=== PATIENT | male | born 1945 | race Caucasian/White ===

== ENCOUNTER → 2016-07-16 | Outpatient (CLI) | payer MEDICARE, OTHER ==
[2016-07-01 08:38] VITALS: BP 136/67
[~2016-07-16] MED LIST: ALFU10TA PO; CALC0.25 PO; CALC500T50 PO; CHOL10002 PO; ESOM40CA PO; LACT1CAP8 PO; LEVO175T5 AD; MECO5000 PO; METO25TA9 PO; ROPI1TAB PO; UBID100C26 PO
== END | disposition home or self-care (01) ==
LOC: PMGWOUND 08:23
PROVIDERS: ATTEND Preventive Medicine Undersea and Hyperbaric Medicine
DX: E11.621 Type 2 diabetes mellitus with foot ulcer (principal); L97.511 Non-pressure chronic ulcer of other part of right foot limited to breakdown of skin
CPT/HCPCS: 99214

== ENCOUNTER → 2016-07-24 | Outpatient (CLI) | payer MEDICARE, OTHER ==
[2016-07-01 08:38] VITALS: BP 136/67
== END | disposition home or self-care (01) ==
LOC: PMGWOUND 08:27
PROVIDERS: ATTEND Emergency Medicine Undersea and Hyperbaric Medicine
DX: E11.621 Type 2 diabetes mellitus with foot ulcer (principal); L97.512 Non-pressure chronic ulcer of other part of right foot with fat layer exposed; E11.51 Type 2 diabetes mellitus with diabetic peripheral angiopathy without gangrene; M19.90 Unspecified osteoarthritis, unspecified site
CPT/HCPCS: 99214

== ENCOUNTER → 2016-07-28 | Outpatient (CLI) | payer MEDICARE, OTHER ==
[2016-07-01 08:38] VITALS: BP 136/67
== END | disposition home or self-care (01) ==
LOC: PMGWOUND 07:55
PROVIDERS: ATTEND Emergency Medicine Undersea and Hyperbaric Medicine
DX: E11.621 Type 2 diabetes mellitus with foot ulcer (principal); L97.512 Non-pressure chronic ulcer of other part of right foot with fat layer exposed; E11.51 Type 2 diabetes mellitus with diabetic peripheral angiopathy without gangrene; M19.90 Unspecified osteoarthritis, unspecified site
CPT/HCPCS: 97597

== ENCOUNTER → 2016-07-31 | Outpatient (CLI) | payer MEDICARE, OTHER ==
[2016-07-01 08:38] VITALS: BP 136/67
== END | disposition home or self-care (01) ==
LOC: PMGWOUND 08:12
PROVIDERS: ATTEND Preventive Medicine Undersea and Hyperbaric Medicine
DX: E11.621 Type 2 diabetes mellitus with foot ulcer (principal); L97.511 Non-pressure chronic ulcer of other part of right foot limited to breakdown of skin; E11.51 Type 2 diabetes mellitus with diabetic peripheral angiopathy without gangrene; M19.90 Unspecified osteoarthritis, unspecified site; E11.42 Type 2 diabetes mellitus with diabetic polyneuropathy; I10 Essential (primary) hypertension; E11.40 Type 2 diabetes mellitus with diabetic neuropathy, unspecified
CPT/HCPCS: 99213

== ENCOUNTER → 2016-08-04 | Outpatient (CLI) | payer MEDICARE, OTHER ==
[2016-07-01 08:38] VITALS: BP 136/67
== END | disposition home or self-care (01) ==
LOC: PMGWOUND 08:21
PROVIDERS: ATTEND Emergency Medicine Undersea and Hyperbaric Medicine
DX: E11.621 Type 2 diabetes mellitus with foot ulcer (principal); L97.512 Non-pressure chronic ulcer of other part of right foot with fat layer exposed; E11.51 Type 2 diabetes mellitus with diabetic peripheral angiopathy without gangrene; M19.90 Unspecified osteoarthritis, unspecified site
CPT/HCPCS: 11042

== ENCOUNTER → 2016-08-06 | Outpatient (CLI) | payer MEDICARE, OTHER ==
[2016-07-01 08:38] VITALS: BP 136/67
[~2016-08-06] MED LIST changes: +AMOX1TAB61 PO; +HYDR-971 PO
--- NOTE | 2016-08-06 15:01 | RAD ---
Bilateral lower extremity arterial ultrasound with KIMMIE measurements, 08/06/2016: History: Peripheral vascular disease, foot ulcer Duplex evaluation of the major arteries in both lower extremities was performed including grayscale, color-flow and spectral Doppler analysis. There are mild scattered atherosclerotic plaques. On the left, the common femoral, superficial femoral and popliteal arteries demonstrate triphasic Doppler waveforms. No significant focal velocity acceleration is seen to suggest significant focal stenosis. Patent anterior tibial, posterior tibial and peroneal arteries are present in the left lower leg demonstrating triphasic Doppler waveforms. The left dorsalis pedis Doppler waveform is also triphasic. Resting KIMMIE measurements were obtained. The left KIMMIE is 1.1 which is within normal limits. On the right, the common femoral, superficial femoral and popliteal Doppler waveforms are triphasic. No significant focal velocity elevation is seen in those vessels to suggest high-grade stenosis. Patent posterior tibial, peroneal and anterior tibial arteries are present in the right lower leg. They demonstrate monophasic Doppler waveforms, although of good amplitude. The right dorsalis pedis Doppler waveform is monophasic and somewhat dampened. The right resting KIMMIE measurement is 1.1, in the normal range. IMPRESSION: 1. Mild scattered atherosclerotic plaquing without evidence of high-grade femoral-popliteal stenosis. 2. Mild degradation of the distal Doppler waveforms in the right lower leg and ankle. 3. Normal bilateral resting KIMMIE measurements.
== END | disposition home or self-care (01) ==
LOC: US 10:01
PROVIDERS: ATTEND Podiatrist Foot & Ankle Surgery
DX: L97.529 Non-pressure chronic ulcer of other part of left foot with unspecified severity (principal); L97.519 Non-pressure chronic ulcer of other part of right foot with unspecified severity; I73.9 Peripheral vascular disease, unspecified; I70.0 Atherosclerosis of aorta
CPT/HCPCS: 93922; 93925

== ENCOUNTER 2016-08-08 08:44 | Day surgery (SDC) | payer MEDICARE, OTHER ==
[~2016-08-08] VITALS: Ht 193 cm; Wt 104.3 kg
[~2016-08-08 08:44] MED LIST changes: -AMOX1TAB61 PO; +BUPIVACAINE MPF 0.5% 30 ML VIAL. ONE; +BUPIVACAINE-EPI 0.25%-1:200000 MPF 30 ML VIAL. ONE; +CEFAZOLIN 1GM IVPB FOR OMNI 50 ML IV PRN; +DEXAMETHASONE SOD PHOS 4 MG/ML VIAL ONE; +FENTANYL PF 100 MCG/2 ML VIAL. IV PRN; -HYDR-971 PO; +HYDROMORPHONE 2 MG/ML VIAL. IV PRN; +IV RINGERS,LACTATED 1000ML 1,000 ML IV SCH; +LIDOCAINE 1% 1 ML SYRINGE. ID PRN; +LIDOCAINE 1% PF 30 ML VIAL. ONE; +MORPHINE SULFATE 2 MG/ML DISP.SYRIN. IV PRN; +ONDANSETRON PF 4 MG/2 ML VIAL. IV PRN; +POVIDONE-IODINE 10% TOPICAL OINTMENT 28GM TUBE. TP ONE; +PROCHLORPERAZINE 10 MG/2 ML VIAL. IV PRN
[2016-08-08 09:29] LABS: BASO # 0.1 x10^3/uL (0.0-0.2); BASO % 1 % (0-3); EOS % 5 % (0-3); HEMATOCRIT 42.2 % (39.0-53.0); HEMOGLOBIN 14.6 g/dL (13.0-17.5); LYMPH # 1.6 x10^3/uL (1.0-4.8); LYMPH % 25 % (24-48); MEAN CORPUSCULAR HEMOGLOBIN 32 pg (25-35); MEAN CORPUSCULAR HGB CONC 35 g/dL (31-37); MEAN CORPUSCULAR VOLUME 91 fL (79-100); MONO % 12 % (0-9); NEUT % 57 % (31-73); PLATELET COUNT 182 x10^3/uL (140-400); RED BLOOD COUNT 4.63 x10^6/uL (4.30-5.70); RED CELL DISTRIBUTION WIDTH 13.4 % (11.5-14.5); WHITE BLOOD COUNT 6.5 x10^3/uL (4.0-11.0)
[2016-08-08 09:42] LABS: CALCIUM 7.8 mg/dL (8.5-10.1); CREATININE 1.2 mg/dL (0.7-1.3); GFR 59.7; POTASSIUM 4.2 mmol/L (3.5-5.1)
[2016-08-08] MEDS ORDERED: CEFAZOLIN 2GM PREMIX 50 ML IV ONE (09:59)
[2016-08-08] MEDS ORDERED: DEXAMETHASONE SOD PHOS 20 MG/5 ML VIAL. ONE (11:23)
[2016-08-08] MEDS ORDERED: PROPOFOL 20 ML IV ONE (11:23)
[2016-08-08] MEDS ORDERED: ONDANSETRON PF 4 MG/2 ML VIAL. ONE (11:24)
[2016-08-08] MEDS ORDERED: FENTANYL PF 100 MCG/2 ML VIAL. ONE (11:24)
--- NOTE | 2016-08-08 12:52 | PDOC4 ---
Operative Note Operative Note Surgeon: Cherise Pre op DX: plantarflexed 2nd metatarsal head right foot, Delayed healing chronic wound plantar 2nd metatarsal head right foot with fat exposed Post op DX: Same Procedure: Excision of 2nd metatarsal head right foot, Excision of chronic ulceration plantar 2nd metatarsal right foot Anesthesia: General with local Hemostasis Right ankle tourniquet at 250mmHg EBL: 1mL Materials: 3-0 vicryl, 4-0 nylon Intraoperative findings: no proximal sinus tracts. Bone 2nd metatarsal head hypertrophic but no signs of osteomyelitis clinically. Patient tolerated surgery and anesthesia well. Transferred to PACU with VSS and VSI Dictation Number [id number] KAILASH BLANCO DPM Aug 08, 2016 12:52
[2016-08-08] MEDS ORDERED: HYDROCODONE/APAP 5/325MG TABLET. ONE (13:07)
[2016-08-08] MEDS ORDERED: AMOX1TAB61 PO (13:11)
[2016-08-08] MEDS ORDERED: HYDR-971 PO (13:11)
--- NOTE | 2016-08-08 13:13 | RAD ---
Right foot, 3 views, 08/08/2016: History: Postop evaluation No previous radiographs are available at this time for comparison purposes. There is absence of the distal end of the second metatarsal apparently on a postsurgical basis. There is a surgical pin in the proximal phalanx of the second toe with underlying fusion of the proximal and middle phalanges. There are moderate degenerative changes at scattered interphalangeal joints and to a greater degree at the first MTP joint. There are moderate degenerative changes at the midfoot level. There is no evidence of a retained surgical instrument, needle or sponge on these views. IMPRESSION: 1. Resected distal second metatarsal. 2. Moderate scattered degenerative changes.
[2016-08-08] MEDS ORDERED: HYDROCODONE/APAP 5/325MG TABLET. PO ONE (13:15)
[2016-08-08 13:50] VITALS: BP 128/58
--- NOTE | 2016-08-08 19:07 | OP ---
DATE OF SURGERY: 08/08/2016 PREOPERATIVE DIAGNOSIS: Plantarflexed metatarsal right foot, second metatarsal with chronic wound sub second metatarsal head. POSTOPERATIVE DIAGNOSIS: Plantarflexed metatarsal right foot, second metatarsal with chronic wound sub second metatarsal head. PROCEDURE: Resection of second metatarsal head, right foot with excision of chronic ulceration, plantar second metatarsophalangeal joint. SURGEON: Belinda Luong DPM ANESTHESIA: General with local anesthetic to the foot. HEMOSTASIS: Right ankle tourniquet at 250 mmHg. INDICATIONS: The patient is a 70-year-old male who has been suffering from a chronic wound to the plantar second metatarsal head for approximately 8 months, possible greater. Patient states that he has exhausted conservative therapy and is concerned with re-ulceration as he is starting really close to healing at multiple times and then breaks down again. The patient has been treated at the [facility] with multiple conservative treatment with local wound care. Total contracted casting offloading antibiotics and has continued to have this problem. Discussed with the patient the preoperative diagnosis as well as possible risks, benefits, complications to include delayed or nonhealing wound dehiscence, need for further surgery, transfer lesions of the foot, floppy toe, flail toe, shortened toe, lack of toe purchase, no guarantees were made. The patient signed consent freely and put in chart. DESCRIPTION OF PROCEDURE: The patient was transported to the operating room via a cart and placed on the operating room table in supine position. He was given 2 grams of IV Ancef preoperatively. A well padded tourniquet was placed over the right ankle and the right foot was prepped and draped in the usual aseptic manner. Esmarch bandage was used to exsanguinate the right foot and the right ankle tourniquet was inflated to 250 mmHg. Attention was directed to the plantar second metatarsal head where two ulcerations were noted sub second metatarsal head measuring and 0.2 x 0.2 x 0.4 cm both of those. There was no pustular drainage and there was periwound hyperkeratosis and no other ____. Two converging semielliptical incisions were made to ellipse out this ulceration measured 3 cm total. Next, the wound was copiously irrigated with sterile saline and the skin was reapproximated with 3-0 Vicryl and 3-0 nylon. Next, attention was directed to the dorsal second metatarsal head where a 3 cm linear incision was made over the second metatarsophalangeal joint. This was deepened to the level of the metatarsal neck and periosteum was resected from the second metatarsal head and neck and the sagittal saw was used to resect the second metatarsal head at the neck. The second metatarsal head was then resected in toto and sent to pathology. Aerobic and anaerobic wound cultures were taken. A 3 liter bag pulse lavage was ____ used to irrigate the wound with copious irrigation and then the joint capsule was reapproximated with 3-0 Vicryl and the skin was reapproximated with 4-0 nylon. A postop dressing was applied with Betadine-soaked Adaptic gauze, 4 x 4s, Kerlix bandage and an Ashkan bandage. The patient tolerated anesthesia and procedure well. The tourniquet was deflated and good perfusion was noted to all digits of the right foot. The patient is to bathroom privileges only, we will begin on an antibiotic and given pain medications to be taken as needed and patient is to follow up next week Thursday for wound care and wound dressing. The postop instructions are in the chart. BELINDA LUONG DPM DR: Myriam JOB#: [id number] / [id number]
--- NOTE | 2016-08-08 21:51 | PDOC2 ---
CONSULT Date of Consult Date of Consult DATE: 08/08/16 TIME: 10:50 Reason for Consult Reason for Consult: clearance for surgery Referring Physician Referring Physician: DR BLANCO Identification/Chief Complaint Chief Complaint A 70 Male with HTN, who has been suffering from a chronic wound to the plantar second metatarsal head for few months, he has been following wound care, conservative treatment didn't help much.He was seen by Podiatry, Dr Partida, who planned for resection of second metatarsal head, right foot with excision of chronic ulceration, plantar second metatarsophalangeal joint. [facility] has consulted for medical clearance before surgery. Pt denies any symptoms scuh as chest pain, or sob, no bleeding issues, Past Medical History Cardiovascular: HTN Past Surgical History Past Surgical History none Family History Family History: Other (unknown) Current Medications Current Medications Current Medications Ondansetron HCl (Zofran) 4 mg PRN Q6HRS PRN IV NAUSEA/VOMITING; Start 08/08/16 at 07:00; Stop 08/08/16 at 14:13; Status DC Fentanyl Citrate (Fentanyl 2ml Vial) 25 mcg PRN Q5MIN PRN IV MILD PAIN; Start 08/08/16 at 07:00; Stop 08/08/16 at 14:13; Status DC Fentanyl Citrate (Fentanyl 2ml Vial) 50 mcg PRN Q5MIN PRN IV MODERATE PAIN; Start 08/08/16 at 07:00; Stop 08/08/16 at 14:13; Status DC Morphine Sulfate 1 mg 1 mg PRN Q10MIN PRN IV SEVERE PAIN; Start 08/08/16 at 07: 00; Stop 08/08/16 at 14:13; Status DC Lactated Ringer's (Iv Lactated Ringers) 1,000 ml @ 0 mls/hr Q0M IV Last administered on 08/08/16t 09:43; Start 08/08/16 at 07:00; Stop 08/08/16 at 14:13 ; Status DC Lidocaine HCl 2 ml PRN 1X PRN ID PRIOR TO IV START; Start 08/08/16 at 07:00; Stop 08/08/16 at 14:13; Status DC Hydromorphone HCl (Dilaudid) 0.5 mg PRN Q10MIN PRN IV SEV PAIN, Second choice; Start 08/08/16 at 07:00; Stop 08/08/16 at 14:13; Status DC Prochlorperazine Edisylate 5 mg 5 mg PACU PRN PRN IV NAUSEA, MRX1; Start at 07:00; Stop 08/08/16 at 14:13; Status DC Cefazolin Sodium (Ancef 1gm Ivpb For Omni) 50 ml @ 100 mls/hr 1X PREOP PRN IV PRIOR TO PROCEDURE; Start 08/08/16 at 06:00; Stop 08/08/16 at 14:13; Status DC Lidocaine HCl 30 ml STK-MED ONCE .ROUTE Last administered on 08/08/16t 12:02; Start 08/08/16 at 07:17; Stop 08/08/16 at 07:18; Status DC Bupivacaine HCl (Sensorcaine Mpf 0.5%) 30 ml STK-MED ONCE .ROUTE Last administered on 08/08/16t 12:02; Start 08/08/16 at 07:17; Stop 08/08/16 at 07:18 ; Status DC Povidone Iodine ( Betadine Oint) 28 boo STK-MED ONCE TP ; Start 08/08/16 at 07: 17; Stop 08/08/16 at 07:18; Status DC Dexamethasone Sodium Phosphate (Decadron) 4 mg STK-MED ONCE .ROUTE ; Start 08/08 at 07:17; Stop 08/08/16 at 07:18; Status DC Bupivacaine HCl/ Epinephrine Bitart 30 ml 30 ml STK-MED ONCE .ROUTE ; Start at 07:19; Stop 08/08/16 at 07:20; Status DC Cefazolin Sodium/ Dextrose 50 ml @ As Directed STK-MED ONCE IV ; Start 08/08/16 at 09:59; Stop 08/08/16 at 10:00; Status DC Propofol (Diprivan) 20 ml @ As Directed STK-MED ONCE IV ; Start 08/08/16 at 11: 23; Stop 08/08/16 at 11:24; Status DC Dexamethasone Sodium Phosphate (Decadron) 20 mg STK-MED ONCE .ROUTE ; Start at 11:23; Stop 08/08/16 at 11:24; Status DC Ondansetron HCl (Zofran) 4 mg STK-MED ONCE .ROUTE ; Start 08/08/16 at 11:24; Stop 08/08/16 at 11:25; Status DC Fentanyl Citrate (Fentanyl 2ml Vial) 100 mcg STK-MED ONCE .ROUTE ; Start at 11:24; Stop 08/08/16 at 11:25; Status DC Acetaminophen/ Hydrocodone Bitart (Lortab 5/325) 1 tab STK-MED ONCE .ROUTE ; Start 08/08/16 at 13:07; Stop 08/08/16 at 13:08; Status DC Acetaminophen/ Hydrocodone Bitart (Lortab 5/325) 1 tab 1X ONCE PO ; Start 08/08 at 13:15; Stop 08/08/16 at 13:17; Status DC Active Scripts Active Reported Augmentin 875-125 Tablet (Amoxicillin/Potassium Clav) 1 Each Tablet 1 Tab PO BID [place] 5-325 Tablet (Acetaminophen/Hydrocodone Bitart) 1 Each Tablet 1 Tab PO Q4HRS PRN Probiotic (Lactobacillus Combo No.11) 1 Each Cap.sprink 1 Each PO B-12 (Mecobalamin) 5,000 Mcg Tab.rapdis 5,000 Mcg PO Coq-10 (Ubidecarenone) 100 Mg Capsule 300 Mg PO Calcium (Calcium Carbonate) 500 Mg Tab.chew 5,000 Mg PO Calcitriol 0.25 Mcg Capsule 1 Cap PO DAILY Requip (Ropinirole Hcl) 1 Mg Tablet 1 Tab PO QHS Metoprolol Succinate ( Xl ) (Metoprolol Succinate) 25 Mg Tab.er.24h 1 Tab PO DAILY Uroxatral (Alfuzosin Hcl) 10 Mg Tab.er.24h 10 Mg PO HS Levothyroxine Sodium 175 Mcg Tablet 1 Tab AD DAILY Allergies Allergies: Coded Allergies: No Known Allergies (Verified Allergy, Unknown, 08/08/16) ROS General: No: Appetite, Chills, Fatigue, Malaise, Night Sweats, Other PSYCHOLOGICAL ROS: No: Anxiety, Behavioral Disorder, Concentration difficultie , Decreased libido, Depression, Disorientation, Hallucinations, Hostility, Irritablity, Memory difficulties, Mood Swings, Obsessive thoughts, Other, Physical abuse, Sexual abuse, Sleep disturbances, Suicidal ideation Respiratory: No: Cough, Hemoptysis, Orthopnea, Other, Pleuritic Pain, SOB with excertion, Shortness of breath, Sputum Changes, Stridor, Tachypnea, Wheezing Cardiovascular: No Chest Pain, No Edema, No Lt Headedness, No Orthopnea, No Other, No Palpitations, No Paroxysmal Noc. Dyspnea Gastrointestinal: No Abdominal Pain, No Constipation, No Diarrhea, No Hematochezia, No Melena, No Nausea, No Other, No Vomiting Musculoskeletal: Yes Joint Pain Skin: No Acne, No Dry Skin, No Eczema, No Hair Changes, No Lumps, No Mole Changes, No Mottling, No Nail Changes, No Other, No Pruritus, No Rash, No Skin Lesion Changes Physical Exam General: Alert, Oriented X3, Cooperative HEENT: Atraumatic, PERRLA Lungs: Clear to auscultation Heart: Normal S1, Normal S2 Abdomen: Normal bowel sounds Extremities: No clubbing Skin: No rashes Neuro: Normal gait, Normal speech Psych/Mental Status: Mental status NL MUSCULOSKELETAL: No deformity, No muscular tenderness noted, Full range of motion without pain (right 2nd meta tarsal ulcer, plantar), Other Vitals VITALS Vital Signs Date Time Temp Pulse Resp B/P Pulse Ox O2 Delivery O2 Flow Rate FiO2 08/08/16 13:50 98.6 57 15 128/58 97 Room Air 98.6 08/08/16 12:36 10 Labs Labs Laboratory Tests Test 08/08/16 09:15 White Blood Count 6.5x10^3/uL (4.0-11.0) Red Blood Count 4.63x10^6/uL (4.30-5.70) Hemoglobin 14.6g/dL (13.0-17.5) Hematocrit 42.2% (39.0-53.0) Mean Corpuscular Volume 91fL (79-100) Mean Corpuscular Hemoglobin 32pg (25-35) Mean Corpuscular Hemoglobin Concent 35g/dL (31-37) Red Cell Distribution Width 13.4% (11.5-14.5) Platelet Count 182x10^3/uL (140-400) Neutrophils (%) (Auto) 57% (31-73) Lymphocytes (%) (Auto) 25% (24-48) Monocytes (%) (Auto) 12% (0-9) Eosinophils (%) (Auto) 5% (0-3) Basophils (%) (Auto) 1% (0-3) Neutrophils # (Auto) 3.7x10^3uL (1.8-7.7) Lymphocytes # (Auto) 1.6x10^3/uL (1.0-4.8) Monocytes # (Auto) 0.8x10^3/uL (0.0-1.1) Eosinophils # (Auto) 0.3x10^3/uL (0.0-0.7) Basophils # (Auto) 0.1x10^3/uL (0.0-0.2) Sodium Level 139mmol/L (136-145) Potassium Level 4.2mmol/L (3.5-5.1) Chloride Level 102mmol/L (98-107) Carbon Dioxide Level 27mmol/L (21-32) Anion Gap 10 (6-14) Blood Urea Nitrogen 27mg/dL (8-26) Creatinine 1.2mg/dL (0.7-1.3) Estimated GFR (Cockcroft-Gault) 59.7 Glucose Level 118mg/dL (70-99) Calcium Level 7.8mg/dL (8.5-10.1) Laboratory Tests Test 08/08/16 09:15 White Blood Count 6.5x10^3/uL (4.0-11.0) Red Blood Count 4.63x10^6/uL (4.30-5.70) Hemoglobin 14.6g/dL (13.0-17.5) Hematocrit 42.2% (39.0-53.0) Mean Corpuscular Volume 91fL (79-100) Mean Corpuscular Hemoglobin 32pg (25-35) Mean Corpuscular Hemoglobin Concent 35g/dL (31-37) Red Cell Distribution Width 13.4% (11.5-14.5) Platelet Count 182x10^3/uL (140-400) Neutrophils (%) (Auto) 57% (31-73) Lymphocytes (%) (Auto) 25% (24-48) Monocytes (%) (Auto) 12% (0-9) Eosinophils (%) (Auto) 5% (0-3) Basophils (%) (Auto) 1% (0-3) Neutrophils # (Auto) 3.7x10^3uL (1.8-7.7) Lymphocytes # (Auto) 1.6x10^3/uL (1.0-4.8) Monocytes # (Auto) 0.8x10^3/uL (0.0-1.1) Eosinophils # (Auto) 0.3x10^3/uL (0.0-0.7) Basophils # (Auto) 0.1x10^3/uL (0.0-0.2) Sodium Level 139mmol/L (136-145) Potassium Level 4.2mmol/L (3.5-5.1) Chloride Level 102mmol/L (98-107) Carbon Dioxide Level 27mmol/L (21-32) Anion Gap 10 (6-14) Blood Urea Nitrogen 27mg/dL (8-26) Creatinine 1.2mg/dL (0.7-1.3) Estimated GFR (Cockcroft-Gault) 59.7 Glucose Level 118mg/dL (70-99) Calcium Level 7.8mg/dL (8.5-10.1) Assessment/Plan Assessment/Plan Right 2nd meta tarsal ulcer non healing HTN Plan HTN stable CBC/BMP no chronic conditions Planning for resection of second metatarsal head, right foot with excision of chronic ulceration, plantar second metatarsophalangeal joint Very low risk for surgery. BARBIE LUNA MD Aug 08, 2016 21:51
--- NOTE | 2016-08-13 08:21 | PATHOLOGY ---
PATHOLOGY REPORT * * * * * * * * FINAL DIAGNOSIS: Segments of skin and bone with articular cartilage, second metatarsal head right foot: - Pseudoepitheliomatous hyperplasia, ulceration, and acute inflammation of skin. - Bone segment showing no evidence of osteomyelitis. (JPM:csd; d/t: 08/12/2016) REPORT ELECTRONICALLY SIGNED BY: Francis Helton M.D. DATE/TIME: 08/13/2016 08:20 * * * * * * * * GROSS PATHOLOGY: The specimen is received in formalin labeled "Román Mcgovern, second metatarsal head right foot". Received is a segment of bone displaying one blunt and one convex margin, measuring 2.6 x 2.3 x 1.5 cm in greatest dimensions. The blunt margin is inked black. Also received within the specimen container is an ellipse of skin measuring 2.4 x 1.0 x 1.0 cm in greatest dimensions displaying a poorly circumscribed, irregular in contour, focally crusted possible lesion measuring 1.2 x 0.5 cm. The specimen is submitted representatively in cassettes A1 and A2, with cassette A1 submitted following decalcification. (CAA; 08/11/2016) INITIAL CPT CODE(S): A; 23483, 32103 Professional services performed [place] [address] Technical services performed by [facility] at [address] [place] [address], [facility] [address] [address]. SPECIMEN(S) RECEIVED: A.Second metatarsal head right foot CLINICAL HISTORY: Ulcer right foot PATIENT: ROMÁN MCGOVERN /AGE: 811/25/1945 (Age: 70) PATIENT #: [id number] ALT CASE #: SPECIMEN COLLECTION DATE: 08/08/2016 SPECIMEN RECEIVED DATE: 08/08/2016 [facility] - [address] [place] [address] - PHONE: [phone] * * * END OF REPORT * * *
== END 2016-08-08 14:07 | disposition home or self-care (01) ==
LOC: SURG 08:44
PROVIDERS: ATTEND Podiatrist Foot & Ankle Surgery
DX: L97.519 Non-pressure chronic ulcer of other part of right foot with unspecified severity (principal); I10 Essential (primary) hypertension; K21.9 Gastro-esophageal reflux disease without esophagitis; E03.9 Hypothyroidism, unspecified; M19.90 Unspecified osteoarthritis, unspecified site; E89.0 Postprocedural hypothyroidism
CPT/HCPCS: 28112; 36415; 73630; 80048; 85027; 87071; 87075; 87205; C1769; J0690; J1100; J2405; J2704; J3010; J3490; 87186